=== PATIENT | female | born 1960 | race Caucasian/White ===

== ENCOUNTER 2018-02-17 12:43 | Emergency (ER) | payer MEDICARE, OTHER ==
[~2018-02-17] VITALS: Ht 160 cm; Wt 69.1 kg
[~2018-02-17 12:43] MED LIST: ASPI-1264 PO; BENZ-38 PO; COR3.125T PO; FURO-149 PO; HYDR1CAP PO; LEVO500T2 PO; METH-360 PO; OMEP-84 PO; POTA25TA PO; VALA500T33 PO; VALS40TA2 PO; VILA10TA PO; ZOF4T PO; ZOLP10TA5 PO
[2018-02-17 12:48] VITALS: BP 147/92
== END 2018-02-17 14:31 | disposition home or self-care (01) ==
LOC: ER 12:44
DX: M79.604 Pain in right leg (principal); Z98.890 Other specified postprocedural states; Z85.3 Personal history of malignant neoplasm of breast; Z79.82 Long term (current) use of aspirin; Z79.899 Other long term (current) drug therapy
CPT/HCPCS: 93971; 99284

== ENCOUNTER 2019-05-14 12:18 | Inpatient (IN) | payer MEDICARE, OTHER ==
[~2019-05-14] VITALS: Ht 157.5 cm; Wt 65.0 kg
[2019-05-14] MEDS ORDERED: ipratropium/albuterol 3ml nebule NEB ONE (12:40)
[2019-05-14] MEDS ORDERED: normal saline 1000ML IV soln IVB ONE (12:40)
[2019-05-14] MEDS ORDERED: ketorolac trometh. 30mg/ml inj. IV ONE (12:40)
[2019-05-14] MEDS ORDERED: CefTRIAXone 2gm/D5W 50ml 50 ML IV ONE (13:10)
[2019-05-14] MEDS ORDERED: azithromycin/NS 500mg/250ml 250 ML IV ONE (13:10)
[2019-05-14 13:20] LABS: BASOPHILS % (AUTO) 0.6 % (0-1); EOSINOPHILS # (AUTO) 0.3 X10'3 (0-0.9); EOSINOPHILS % (AUTO) 6.5 % (0-6); HEMATOCRIT 40.1 % (35.0-45.0); HEMOGLOBIN 13.7 g/dl (12.0-16.0); LYMPHOCYTES # (AUTO) 2.1 X10'3 (1.1-4.8); LYMPHOCYTES % (AUTO) 45.5 % (21-51); MEAN CORPUSCULAR HEMOGLOBIN 34.3 PG (27.0-31.0); MEAN CORPUSCULAR HGB CONC 34.2 g/dL (33.0-36.5); MEAN CORPUSCULAR VOLUME 100.3 FL (78-98); MEAN PLATELET VOLUME 7.1 FL (7.4-10.4); MONOCYTES # (AUTO) 0.4 X10'3 (0-0.9); MONOCYTES % (AUTO) 7.9 % (2-12); NEUTROPHILS # (AUTO) 1.8 X10'3 (1.8-7.7); NEUTROPHILS % (AUTO) 39.5 % (42-75); PLATELET COUNT 172 X10'3 (140-440); RED CELL DISTRIBUTION WIDTH 13.9 % (11.5-14.5); WHITE BLOOD COUNT 4.5 X10'3 (4.5-11.0)
[2019-05-14 13:31] LABS: PARTIAL THROMBOPLASTIN TIME 27 SECONDS (22-32)
[2019-05-14 13:41] LABS: ALANINE AMINOTRANSFERASE 23 U/L (12-78); ALBUMIN 3.7 G/DL (3.4-5.0); ALBUMIN/GLOBULIN RATIO 1.3 (1.1-1.5); ALKALINE PHOSPHATASE 91 IU/L (46-116); ANION GAP 4 (8-16); ASPARTATE AMINO TRANSFERASE 21 U/L (10-37); BILIRUBIN,TOTAL 0.3 MG/DL (0.1-1.0); BLOOD UREA NITROGEN 14 MG/DL (7-18); BUN/CREATININE RATIO 14.3 (6.6-38.0); CALCIUM 8.9 MG/DL (8.5-10.1); CHLORIDE 106 MMOL/L (99-107); CREATININE 0.98 MG/DL (0.40-0.90); GLUCOSE 115 MG/DL (70-104); MAGNESIUM 1.8 MG/DL (1.5-2.4); POTASSIUM 3.4 MMOL/L (3.5-5.1); SODIUM 141 MMOL/L (135-145); TOTAL CARBON DIOXIDE 30.9 MMOL/L (24-32); TOTAL PROTEIN 6.6 G/DL (6.4-8.2); eGFR 58 ML/MIN
[2019-05-14] MEDS ORDERED: LISI-600 PO (14:52)
[2019-05-14] MEDS ORDERED: BENZ-16 PO (14:52)
[2019-05-14] MEDS ORDERED: magnesium 2GM in 50ml NS 50 ML IV PRN (15:25)
[2019-05-14] MEDS ORDERED: mag hydrox/Alum hydrox/simeth 30ml oral suspension PO PRN (15:25)
[2019-05-14] MEDS ORDERED: magnesium Cl slow-release 64mg tablet PO PRN (15:25)
[2019-05-14] MEDS ORDERED: acetaminophen 325mg tablet PO PRN (15:25)
[2019-05-14] MEDS ORDERED: ondansetron/PF 4mg/2ml inj IV PRN (15:25)
[2019-05-14] MEDS ORDERED: ipratropium/albuterol 3ml nebule NEB PRN (15:25)
[2019-05-14] MEDS ORDERED: potassium CL 10mEq/100ml bag 100 ML IV PRN ×2 (15:25)
[2019-05-14] MEDS ORDERED: potassium Cl 20 mEq SR tablet PO PRN ×2 (15:25)
[2019-05-14] MEDS ORDERED: LIDOcaine/PRILOcaine 5gm cream TP PRN (15:25)
[2019-05-14] MEDS ORDERED: magnesium 4gm in 100ml NS 100 ML IV PRN (15:25)
[2019-05-14] MEDS ORDERED: magnesium hydroxide 30ml (MOM) UD suspension PO PRN (15:25)
[2019-05-14] MEDS ORDERED: iohexol 300mg/ml 100ml inj. ONE (15:27)
[2019-05-14 15:45] LABS: CLARITY,URINE CLEAR (Clear); COLOR,URINE STRAW (Yellow); GLUCOSE, URINE NEGATIVE (Neg); KETONES,URINE NEGATIVE (Neg); LEUKOCYTE ESTERASE ,URINE NEGATIVE (Neg); NITRITES, URINE NEGATIVE (Neg); OCCULT BLOOD,URINE NEGATIVE (Neg); PROTEIN,URINE NEGATIVE (Neg); UROBILINOGEN,URINE 0.2 E.U/dL (0.2-1.0)
[2019-05-14 15:46] LABS: URINE HCG NEGATIVE (NEG)
[2019-05-14 15:49] LABS: UA COLLECTION TYPE CLN CATCH MIDSTREAM
[2019-05-14] MEDS: normal saline 1000ml 1,000 ML IV SCH ×2 (16:47→23:06)
[2019-05-14] MEDS: levoFLOXACIN-Levaquin 500mg/D5 100 ML IV SCH (16:48)
[2019-05-14 19:00] VITALS: BP 128/80
--- NOTE | 2019-05-14 19:24 | NUR ---
Patient in room PCU 3012. I have received report from Richard GONZALEZ and had the opportunity to ask questions and assume patient care.
[2019-05-14] MEDS: budesonide 0.5mg/2ml UD nebule IH SCH (19:33)
[2019-05-14] MEDS ORDERED: prazosin 1mg capsule PO SCH (21:00)
[2019-05-14 23:00] VITALS: BP 134/82
[2019-05-14] MEDS: HYDROcodone/acetaminophen 5mg/325mg tablet PO PRN (23:06)
[2019-05-14] MEDS: LORazepam 0.5 MG tablet PO PRN (23:44)
[2019-05-15] MEDS: HYDROcodone/acetaminophen 5mg/325mg tablet PO PRN ×3 (02:50→13:18)
[2019-05-15] MEDS: K and/or MAG REPLACEMENT MC SCH ×2 (02:50→08:00)
[2019-05-15 05:34] LABS: ALANINE AMINOTRANSFERASE 19 U/L (12-78); ALBUMIN 2.9 G/DL (3.4-5.0); ALBUMIN/GLOBULIN RATIO 1.2 (1.1-1.5); ALKALINE PHOSPHATASE 75 IU/L (46-116); ANION GAP 8 (8-16); ASPARTATE AMINO TRANSFERASE 16 U/L (10-37); BILIRUBIN,TOTAL 0.2 MG/DL (0.1-1.0); BLOOD UREA NITROGEN 10 MG/DL (7-18); BUN/CREATININE RATIO 11.8 (6.6-38.0); CALCIUM 8.1 MG/DL (8.5-10.1); CHLORIDE 111 MMOL/L (99-107); CREATININE 0.85 MG/DL (0.40-0.90); GLUCOSE 94 MG/DL (70-104); MAGNESIUM 1.7 MG/DL (1.5-2.4); SODIUM 144 MMOL/L (135-145); TOTAL CARBON DIOXIDE 25.2 MMOL/L (24-32); TOTAL PROTEIN 5.4 G/DL (6.4-8.2); eGFR 68 ML/MIN
[2019-05-15 05:38] LABS: BASOPHILS % (AUTO) 0.4 % (0-1); EOSINOPHILS # (AUTO) 0.2 X10'3 (0-0.9); EOSINOPHILS % (AUTO) 6.3 % (0-6); HEMATOCRIT 35.5 % (35.0-45.0); HEMOGLOBIN 12.4 g/dl (12.0-16.0); LYMPHOCYTES # (AUTO) 1.9 X10'3 (1.1-4.8); LYMPHOCYTES % (AUTO) 50.1 % (21-51); MEAN CORPUSCULAR HEMOGLOBIN 34.9 PG (27.0-31.0); MEAN CORPUSCULAR HGB CONC 34.8 g/dL (33.0-36.5); MEAN CORPUSCULAR VOLUME 100.3 FL (78-98); MONOCYTES # (AUTO) 0.3 X10'3 (0-0.9); MONOCYTES % (AUTO) 7.9 % (2-12); NEUTROPHILS # (AUTO) 1.4 X10'3 (1.8-7.7); NEUTROPHILS % (AUTO) 35.3 % (42-75); PLATELET COUNT 144 X10'3 (140-440); RED BLOOD COUNT 3.54 X10'6 (4.20-5.60); RED CELL DISTRIBUTION WIDTH 13.8 % (11.5-14.5); WHITE BLOOD COUNT 3.9 X10'3 (4.5-11.0)
[2019-05-15 06:00] VITALS: BP 118/66
--- NOTE | 2019-05-15 06:15 | NUR ---
Patient in room PCU 3012. I have received report from Tarik GONZALEZ and had the opportunity to ask questions and assume patient care.
--- NOTE | 2019-05-15 06:17 | NUR ---
Problems reprioritized. Patient report given, questions answered & plan of care reviewed with Miri Welch.
[2019-05-15] MEDS: levoFLOXACIN-Levaquin 500mg/D5 100 ML IV SCH (07:30)
[2019-05-15] MEDS ORDERED: cetirizine 10mg tablet PO SCH (08:00)
[2019-05-15] MEDS ORDERED: enoxaparin 40mg/0.4ml syringe SQ SCH (08:00)
[2019-05-15] MEDS ORDERED: montelukast 10mg tablet PO SCH (08:00)
[2019-05-15] MEDS: budesonide 0.5mg/2ml UD nebule IH SCH (09:22)
[2019-05-15] MEDS ORDERED: FLU VACC QS2019-20 36MOS UP/PF 60 MCG/0.5 ML SYRINGE IMVAC ONE (10:00)
[2019-05-15] MEDS ORDERED: BUDE10.2 INH (12:11)
[2019-05-15] MEDS ORDERED: LEVO500T89 PO (12:11)
[2019-05-15] MEDS ORDERED: PRAZ1CAP5 PO (12:11)
[2019-05-15] MEDS ORDERED: MONT10TA24 PO (12:11)
[2019-05-15] MEDS: LORazepam 0.5 MG tablet PO PRN (13:18)
--- NOTE | 2019-05-15 13:56 | NUR ---
Stable for discharge per MD, all discharge instructions reviewed w pt and all questions answered, new prescriptions called into [facility] on [address] in [place], PIV discontinued, Tele monitor discontinued, belongings collected and sent with pt, wheeled to lobby by nurses aide and left in private vehicle with , off the unit at [id number]
[2019-05-15] MEDS ORDERED: zolpidem 5mg tablet PO ONE (22:42)
[2019-05-16] MEDS ORDERED: FLUT12AE4 IH (10:08)
== END 2019-05-15 13:56 | disposition home or self-care (01) | DRG 190 ==
LOC: ER 12:18 → ED HOLD 15:22 → EDBEDREQ 16:39 → PCU 3S 19:05
PROVIDERS: ADMIT Family Medicine; ATTEND Family Medicine
DX: J44.0 Chronic obstructive pulmonary disease with (acute) lower respiratory infection (principal); J18.9 Pneumonia, unspecified organism; J20.9 Acute bronchitis, unspecified; F32.9 Major depressive disorder, single episode, unspecified; F43.10 Post-traumatic stress disorder, unspecified; F41.9 Anxiety disorder, unspecified; F51.4 Sleep terrors [night terrors]; Z80.0 Family history of malignant neoplasm of digestive organs; Z85.3 Personal history of malignant neoplasm of breast; Z90.11 Acquired absence of right breast and nipple; Z92.21 Personal history of antineoplastic chemotherapy; Z79.899 Other long term (current) drug therapy
CPT/HCPCS: 36415; 71045; 71260; 80053; 81003; 81025; 83605; 83735; 83880; 84145; 84484; 85025; 85610; 85730; 87040; 87081; 87502; 87503; 94640; 94667; 94760; 96365; 96368; 96375; 99285; G0378; J0456; J0696; J1650; J1885; J1956; J7030; J7626; Q2037; Q9967

== ENCOUNTER 2020-06-20 20:15 | Emergency (ER) | payer MEDICARE, OTHER ==
[~2020-06-20] VITALS: Ht 160 cm; Wt 63.6 kg
[~2020-06-20 20:15] MED LIST changes: -ASPI-1264 PO; +BENZ-16 PO; -BENZ-38 PO; +FLUT12AE4 IH; -FURO-149 PO; -HYDR1CAP PO; -LEVO500T2 PO; +LISI-600 PO; -METH-360 PO; +MONT10TA97 PO; -POTA25TA PO; +PRAZ1CAP5 PO; -VALA500T33 PO; -VALS40TA2 PO; -ZOF4T PO
[2020-06-20 21:12] LABS: BASOPHILS # (AUTO) 0.1 X10'3 (0-0.2); BASOPHILS % (AUTO) 1.3 % (0-1); EOSINOPHILS # (AUTO) 0.1 X10'3 (0-0.9); EOSINOPHILS % (AUTO) 2.8 % (0-6); HEMATOCRIT 42.3 % (35.0-45.0); HEMOGLOBIN 14.4 g/dl (12.0-16.0); MEAN CORPUSCULAR HGB CONC 33.9 g/dL (33.0-36.5); MEAN CORPUSCULAR VOLUME 100.2 FL (78-98); MEAN PLATELET VOLUME 7.1 FL (7.4-10.4); MONOCYTES # (AUTO) 0.3 X10'3 (0-0.9); MONOCYTES % (AUTO) 7.2 % (2-12); NEUTROPHILS # (AUTO) 1.4 X10'3 (1.8-7.7); NEUTROPHILS % (AUTO) 37.7 % (42-75); PLATELET COUNT 178 X10'3 (140-440); RED BLOOD COUNT 4.22 X10'6 (4.20-5.60); RED CELL DISTRIBUTION WIDTH 13.3 % (11.5-14.5); WHITE BLOOD COUNT 3.8 X10'3 (4.5-11.0)
[2020-06-20 21:14] LABS: ALANINE AMINOTRANSFERASE 19 U/L (12-78); ALBUMIN 3.8 G/DL (3.4-5.0); ALBUMIN/GLOBULIN RATIO 1.2 (1.1-1.5); ALKALINE PHOSPHATASE 90 IU/L (46-116); ANION GAP 7 (8-16); ASPARTATE AMINO TRANSFERASE 15 U/L (10-37); BILIRUBIN,TOTAL 0.3 MG/DL (0.1-1.0); BLOOD UREA NITROGEN 12 MG/DL (7-18); BUN/CREATININE RATIO 11.4 (6.6-38.0); CALCIUM 9.1 MG/DL (8.5-10.1); CHLORIDE 112 MMOL/L (99-107); CREATININE 1.05 MG/DL (0.40-0.90); ETHANOL 0.195 GM/DL (0.0-0.010); GLUCOSE 89 MG/DL (70-104); POTASSIUM 3.8 MMOL/L (3.5-5.1); SODIUM 149 MMOL/L (135-145); TOTAL CARBON DIOXIDE 30.3 MMOL/L (24-32); eGFR 53 ML/MIN
[2020-06-20 21:15] LABS: ACETAMINOPHEN < 2.0 UG/ML (10-30)
--- NOTE | 2020-06-20 21:22 | NUR ---
Contacted Poison Control who states to watch for [employer] and resp depression. 4-6 hours to reassess. If still symptomatic continue to monitor until baseline. Run following lab tests. tylenol, aspirin, cbc, cmp, alcohol and watch until baseline.
[2020-06-20 22:12] LABS: URINE HCG NEGATIVE (NEG)
[2020-06-20 22:24] LABS: URINE AMPHETAMINE SCREEN NEGATIVE (Neg); URINE BARBITUATE SCREEN NEGATIVE (Neg); URINE BENZODIAZEPINES SCREEN NEGATIVE (Neg); URINE CANNABINOID SCREEN NEGATIVE (Neg); URINE COCAINE SCREEN NEGATIVE (Neg); URINE METHADONE SCREEN NEGATIVE (Neg); URINE OPIATE SCREEN NEGATIVE (Neg); URINE PHENCYCLIDINE SCREEN NEGATIVE (Neg)
[2020-06-21 01:03] VITALS: BP 128/74
--- NOTE | 2020-06-21 03:14 | NUR ---
pt resting comfortably in room, with lights dimmed.
--- NOTE | 2020-06-21 05:06 | NUR ---
PT RESTING IN BED COMFORTABLY
--- NOTE | 2020-06-21 06:28 | NUR ---
Patient walked over from the main ED to bed 20. No distress, steady gait. Continue to monitor.
--- NOTE | 2020-06-21 07:55 | NUR ---
FAXED PACKET [facility]
--- NOTE | 2020-06-21 08:05 | NUR ---
Patient eating breakfast. No distress observed. Continue to monitor.
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
--- NOTE | 2020-06-21 10:42 | NUR ---
Nohemy A[facility], evaluating patient. Continue to monitor.
== END 2020-06-21 11:32 | disposition home or self-care (01) ==
LOC: ER 20:16
DX: T42.6X2A Poisoning by other antiepileptic and sedative-hypnotic drugs, intentional self-harm, initial encounter (principal); T42.4X2A Poisoning by benzodiazepines, intentional self-harm, initial encounter; F41.9 Anxiety disorder, unspecified; F32.9 Major depressive disorder, single episode, unspecified; F10.920 Alcohol use, unspecified with intoxication, uncomplicated; Z72.89 Other problems related to lifestyle; Z98.890 Other specified postprocedural states; Z79.899 Other long term (current) drug therapy; Y92.89 Other specified places as the place of occurrence of the external cause; Y90.9 Presence of alcohol in blood, level not specified
CPT/HCPCS: 80053; 80305; 80320; 80329; 81025; 85025; 93005; 99285